=== PATIENT | female | born 1960 | race Caucasian/White ===

== ENCOUNTER 2017-02-26 14:20 | Emergency (ER) | payer OTHER ==
[2017-02-26 14:21] VITALS: BMI 24.6
[2017-02-26 14:44] VITALS: BP 166/80; PULSE 72; RESP 18; TEMP 98; O2SAT 99
[2017-02-26 15:00] LABS: RBC URINE 2 /hpf (0-3); URINE BILIRUBIN NEGATIVE (NEGATIVE); URINE BLOOD NEGATIVE (NEGATIVE); URINE COLOR Yellow (YELLOW); URINE GLUCOSE (UA) NORMAL (Normal); URINE KETONE NEGATIVE (NEGATIVE); URINE LEUKOCYTE ESTERASE NEG Leu/uL (Negative); URINE PROTEIN NEGATIVE (NEGATIVE); URINE UROBILINOGEN NORMAL mg/dL (0.2-1.0); WBC URINE 1 /hpf (0-5)
--- NOTE | 2017-02-26 15:05 | C.PDOC ---
History Of Present Illness 56 y/o F p/w increased urinary frequency, dysuria x 1 week. Denies fever, vomiting, flank pain. She states she has had UTIs in the past and feels the same. She took a friend's Macrobid once 2 days ago. Time Seen by Provider: 02/26/17 14:36 Chief Complaint (Nursing): Female Genitourinary Past Medical History Vital Signs: Last Vital Signs Temp 98 F 02/26/17 14:42 Pulse 72 02/26/17 14:42 Resp 18 02/26/17 14:42 BP 166/80 H 02/26/17 14:42 Pulse Ox 99 02/26/17 15:05 - Medical History PMH: HTN, Hypercholesterolemia, Hypothyroidism Denies: Chronic Kidney Disease - [facility] Procedures CLOSED ENDOSCOPIC BIOPSY OF LARGE INTESTINE (12/06/13) Family History: States: Unknown Family Hx - Social History Hx Alcohol Use: No Hx Substance Use: No Review Of Systems Except As Marked, All Systems Reviewed And Found Negative. Constitutional: Negative for: Fever Respiratory: Negative for: Shortness of Breath Physical Exam - Physical Exam Additional Physical Exam Comments: Constitutional: No acute distress. Head: Normocephalic. Atraumatic. Eyes: PERRL. ENT: Moist mucous membranes. Neck: Supple. Cardiovascular: Regular rate. Radial pulse 2+ bilaterally. Chest: No tenderness. Respiratory: Clear to auscultation bilaterally. GI: Soft. Nontender. Nondistended. Back: No CVA tenderness. Musculoskeletal: No tenderness or swelling of extremities. Skin: No rash. Neurologic: Alert, no focal deficit. ED Course And Treatment O2 Sat by Pulse Oximetry: 99 Medical Decision Making Medical Decision Making: Patient educated on proper antibiotic usage. UA not remarkably positive but given that she had taken antibiotic once, will continue antibiotic and send culture. Disposition - Disposition Disposition: HOME/ ROUTINE Disposition Time: 15:06 Condition: STABLE Prescriptions: Nitrofurantoin Macrocrystals [Macrobid] 100 mg PO BID #20 cap Instructions: Urinary Tract Infection in Women (ED) - Clinical Impression Clinical Impression: Dysuria
== END 2017-02-26 15:17 | disposition home or self-care (01) ==
LOC: C.ER 14:20
DX: R30.0 Dysuria (principal)